=== PATIENT | male | born 2000 | race Two or more races ===

== ENCOUNTER 2019-06-17 16:43 | Emergency (ER) | payer BC, OTHER ==
[~2019-06-17] VITALS: Ht 185.4 cm; Wt 99.8 kg
[2019-06-17 20:24] VITALS: BP 135/90
[2019-06-17] MEDS ORDERED: HYDROcodone-ACET 10/325MG TAB PO ONE (20:30)
== END 2019-06-17 20:44 | disposition home or self-care (01) ==
LOC: ER 16:47
DX: S43.102A Unspecified dislocation of left acromioclavicular joint, initial encounter (principal); E11.9 Type 2 diabetes mellitus without complications; F12.10 Cannabis abuse, uncomplicated; V86.56XA Driver of dirt bike or motor/cross bike injured in nontraffic accident, initial encounter; Y93.89 Activity, other specified; Y99.8 Other external cause status; Y92.89 Other specified places as the place of occurrence of the external cause
CPT/HCPCS: 73030